=== PATIENT | male | born 1990 | race Caucasian/White ===

== ENCOUNTER 2017-01-13 09:07 | Emergency (ER) | payer BC ==
[2017-01-13 09:36] VITALS: BP 139/81; PULSE 118; RESP 20; TEMP 98.2; O2SAT 99
[2017-01-13] MEDS ORDERED: BACITRACIN 500 U/GM OIN TOP ONE ×3 (09:45→09:47)
[2017-01-13] MEDS ORDERED: TDAP VACCINE 0.5 ML SUS IM ONE ×2 (09:45→09:47)
== END 2017-01-13 10:23 | disposition home or self-care (01) ==
LOC: ED 09:07
DX: S61.512A Laceration without foreign body of left wrist, initial encounter (principal); Z86.14 Personal history of Methicillin resistant Staphylococcus aureus infection
CPT/HCPCS: 90471; 90715; 99282; 99283